=== PATIENT | female | born 1980 | race Caucasian/White ===

== ENCOUNTER 2017-12-28 13:02 | Observation (INO) | payer MEDICAID ==
[~2017-12-28] VITALS: Ht 170.2 cm; Wt 68.0 kg
[2017-12-28] MEDS ORDERED: FERR325E14 PO (13:19)
== END 2017-12-28 13:50 | disposition home or self-care (01) ==
LOC: MLD 13:02
PROVIDERS: ADMIT Obstetrics & Gynecology; ATTEND Obstetrics & Gynecology
DX: O36.8190 Decreased fetal movements, unspecified trimester, not applicable or unspecified (principal); Z3A.00 Weeks of gestation of pregnancy not specified
CPT/HCPCS: 81000; G0378